=== PATIENT | female | born 1970 | race Caucasian/White ===

== ENCOUNTER 2017-05-03 11:27 | Outpatient (CLI) | payer OTHER ==
[~2017-05-03] VITALS: Ht 157.5 cm; Wt 49.1 kg
[2017-05-03 11:42] VITALS: BP 126/88; PULSE 80; RESP 18; Ht 157.5 cm; Wt 49.1 kg
[2017-05-03] MEDS ORDERED: ALBU90AE INHALATION (11:57)
[2017-05-03] MEDS ORDERED: FAMO20TA18 PO (11:57)
[2017-05-03] MEDS ORDERED: DIPH25CA6 PO (11:57)
[2017-05-03] MEDS ORDERED: AMLO-147 PO (11:57)
[2017-05-03] MEDS ORDERED: CETI5SOL PO (11:57)
[2017-05-03] MEDS ORDERED: EPIN0.1516 IM (11:57)
--- NOTE | 2017-05-03 12:28 | PN ---
Date/Time of Note Date/Time of Note DATE: 05/03/17 TIME: 12:22 Outpatient Progress Note Chief Complaint Polydipsia/hyponatremia/hypertension/fibromyalgia/migraine headaches/chronic headache HPI Polydipsia/patient has been drinking 12-15 bottles a day, until recently, patient was recently hospitalized with hyponatremia, patient now drinking 6 or 7 bottles a day patient complains of dryness of mouth,, Hyponatremia/patient was recently admitted with hyponatremia, patient has complained of severe fatigue weakness muscle ache, tiredness, Hypertension/patient has headache or dizziness no hematuria,, Fibromyalgia/patient has generalized weakness and tiredness, Migraine headaches/patient has history of migraine headache, and chronic headache, patient on medication, Asthma/patient has history of asthma, on inhaler, Review of Systems Const: No Fever, no chills, no Wt. loss, mild to moderate fatigue, normal appetite, no diaphoresis. Eyes: No pain, no discharge, no redness, no visual change, no foreign body. ENT: No pain, no bleeding, no congestion, no sore throat, no dysphagia, no discharge or rhinitis. Lymph: No adenopathy, no tender nodes, no lymphedema. Resp: No SOB, slight cough, no sputum, no wheezing, no chest pain. CV: No chest pain, no palpitaions, no JONES, no PND, no edema. GI: Normal appetite, no pain, no nausea, no vomiting, no diarrhea, no blood, no constipation. : No frequency, no urgency, no dysuria, no hematuria, no flank pain, no discharge, no bleeding. Musc: no back pain, no neck pain, no knee pain, no restricted ROM. Skin: No rash, no skin lesions, no erythema, no laceration, no bruising, no pruritus. Neuro: No KEENE, no dizziness, no syncope, no seizure, no focal-weakness. Endo: No polyuria, no polydypsia, no dry-skin, no temp-intolerance. Psych: No hallucinations, no depression, no anxiety, no suicidal ideation. Ext: No edema, no pain, no ulcer, no weakness. Physical Exam Vital Signs Date Time Temp Pulse Resp B/P Pulse Ox O2 Delivery O2 Flow Rate FiO2 05/03/17 11:42 98.1 80 18 126/88 99 Room Air General Appearance: A 46 year-old female who appears well-developed, well- nourished, in no acute distress. HEENT: Head normocephalic, atraumatic. Pupils equal, round, reactive to light and accommodate. Sclerae are no jaundice. Nasal turbinates pink without erythema or nasal discharge. Mucous membranes pink and moist without lesions. Oropharynx clear without any exudate or discharge. NECK: Supple. Trachea midline, No thyromegaly, No cervical lymphadenopathy, No mass, No carotid bruits, No JVD, Carotid pulses 2+ bilaterally. PULMONARY: Clear to auscultaion bilaterally, No retractions, Chest expansion symmetric bilaterally, no rales, no ronchi, no dulness on percussion. CARDIAC: Normal SI and S2, Regular rate and rythm, no murmur, gallop, or rub. GASTROINTESTINAL: Abdomen is soft, non-tender, Non Rigid, No distention, Positive bowel sounds x4 quadrants, Liver normal. SKIN: Warm, dry, no rash, no bruise, no echmosis. EXTREMITIES: Bilateral lower extremities normal, no edema, no phlabitus, pulse palpable, no contracture. MUSCULOSKELETAL: Spine Normal, Non-tender, Normal range of motion, No swelling, no deformity, no clubbing, or cyanosis, the patient has no edema to bilateral lower extremities, dorsalis pedis pulses palpable bilaterally. NEUROLOGIC: The patient is awake, alert, oriented, responding to yes/no questions appropriately, moving all extremities, cranial nerve intact, normal strenght, normal power, normal coordination, normal gait. Allergies Coded Allergies: latex (Verified Allergy, Unknown, 05/03/17) pollen extracts (Verified Allergy, Unknown, 05/03/17) PMH Hypertension/hyponatremia/hypokalemia/UTI/migraine headaches/history of multiple allergies/recurrent right ear swelling/migraine headache Social Hx No smoking no drinking Family Hx Noncontributory Assessment/Plan Impression Polydipsia/hyponatremia/hypertension/fibromyalgia/migraine headaches/asthma Plan Patient education done about drinking too much water, patient need to reduce the fluid intake, patient is taking medication for allergy Zyrtec and also inhaler for asthma which will cause dryness of mouth, patient advised to rinse the mouth after medication, Patient also advised to sip of water and soap drink the water, and reduce the fluid intake significantly, Patient has very shallow breathing, patient advised to increase breathing exercise, and resume swimming, at present patient does not have any right ear infection, advised to monitor, We will do BMP for checking the potassium and sodium level, Patient encouraged to follow with the primary care physician, Medications Home Meds Reported Medications Epinephrine (EPINEPHRINE) 0.15 Mg/0.15 Ml Pen.injctr, 0.15 MG IM q15min, SYR 05/03/17 Cetirizine Hcl* (Cetirizine Hcl*) 5 Mg/5 Ml Solution, 10 MG PO DAILY, #300 ML 05/03/17 Diphenhydramine Hcl (Benadryl) 25 Mg Cap, 25 MG PO Q12 for ITCHING, CAP 05/03/17 Albuterol Sulfate (Proair Respiclick) 90 Mcg Aer.pow.ba, 1 PUFF INHALATION Q4 Y for SHORTNESS OF BREATH, #1 BOTTLE 05/03/17 Famotidine* (Famotidine*) 20 Mg Tablet, 20 MG PO BID, #60 TAB 05/03/17 Amlodipine Besylate* (Amlodipine Besylate*) 10 Mg Tablet, 10 MG PO DAILY, #30 TAB 05/03/17 MILI LINDSAY MD May 03, 2017 12:28
== END 2017-05-03 16:42 | disposition home or self-care (01) ==
LOC: DCC 11:27
PROVIDERS: ATTEND Internal Medicine
DX: R63.1 Polydipsia (principal); I10 Essential (primary) hypertension; M79.7 Fibromyalgia; J45.909 Unspecified asthma, uncomplicated; E87.1 Hypo-osmolality and hyponatremia; G43.909 Migraine, unspecified, not intractable, without status migrainosus

== ENCOUNTER → 2017-05-19 | Outpatient (CLI) | payer OTHER ==
[~2017-05-19] VITALS: Ht 157.5 cm; Wt 51.4 kg
[~2017-05-19] MED LIST: ALBU90AE INHALATION; AMLO-147 PO; CETI5SOL PO; DIPH25CA6 PO; EPIN0.1516 IM; FAMO20TA18 PO
[2017-05-19 11:51] VITALS: BP 125/88; PULSE 88; RESP 16; Ht 157.5 cm; Wt 51.4 kg
--- NOTE | 2017-05-19 12:53 | PN ---
Date/Time of Note Date/Time of Note DATE: 05/19/17 TIME: 12:48 Outpatient Progress Note Chief Complaint Hypertension/fibromyalgia/migraine headaches/epigastric discomfort HPI Hypertension/patient is a chronic headache, and occasional dizziness, no local focal weakness, no chest pain, patient blood pressure under control, patient used to take multiple different medication, right now patient is not taking any medication, Fibromyalgia/patient has generalized weakness and tiredness, Migraine headaches/patient has history of migraine headache, patient's a migraine headache off and on and patient has tried almost every medication, Epigastric discomfort/patient has epigastric discomfort, no heartburn, patient on Zantac, Review of Systems Const: No Fever, no chills, no Wt. loss, no Fatigue, normal appetite, no diaphoresis. Eyes: No pain, no discharge, no redness, no visual change, no foreign body. ENT: No pain, no bleeding, no congestion, no sore throat, no dysphagia, no discharge or rhinitis. Lymph: No adenopathy, no tender nodes, no lymphedema. Resp: No SOB, no cough, no sputum, no wheezing, no chest pain. CV: No chest pain, no palpitaions, no JONES, no PND, no edema. GI: Normal appetite, mild epigastric pain, and patient also has mild left lower quadrant discomfort, no nausea, no vomiting, no diarrhea, no blood, no constipation. : No frequency, no urgency, no dysuria, no hematuria, no flank pain, no discharge, no bleeding. Musc: , no back pain, no neck pain, no knee pain, no restricted ROM. Skin: No rash, no skin lesions, no erythema, no laceration, no bruising, no pruritus. Neuro: Off and on KEENE, and dizziness, no syncope, no seizure, no focal-weakness. Endo: No polyuria, no polydypsia, no dry-skin, no temp-intolerance. Psych: No hallucinations, no depression, no anxiety, no suicidal ideation. Ext: No edema, no pain, no ulcer, no weakness. Physical Exam Vital Signs Date Time Temp Pulse Resp B/P Pulse Ox O2 Delivery O2 Flow Rate FiO2 05/19/17 11:51 98.5 88 16 125/88 100 Room Air General Appearance: A 47 year-old female who appears well-developed, well- nourished, in no acute distress. HEENT: Head normocephalic, atraumatic. Pupils equal, round, reactive to light and accommodate. Sclerae are no jaundice. Nasal turbinates pink without erythema or nasal discharge. Mucous membranes pink and moist without lesions. Oropharynx clear without any exudate or discharge. NECK: Supple. Trachea midline, No thyromegaly, No cervical lymphadenopathy, No mass, No carotid bruits, No JVD, Carotid pulses 2+ bilaterally. PULMONARY: Clear to auscultaion bilaterally, No retractions, Chest expansion symmetric bilaterally, no rales, no ronchi, no dulness on percussion. CARDIAC: Normal SI and S2, Regular rate and rythm, no murmur, gallop, or rub. GASTROINTESTINAL: Abdomen is soft, mild left lower quadrant discomfort, Non Rigid, No distention, Positive bowel sounds x4 quadrants, Liver normal. SKIN: Warm, dry, no rash, no bruise, no echmosis. EXTREMITIES: Bilateral lower extremities normal, no edema, no phlabitus, pulse palpable, no contracture. MUSCULOSKELETAL: Spine Normal, Non-tender, Normal range of motion, No swelling, no deformity, no clubbing, or cyanosis, the patient has no edema to bilateral lower extremities, dorsalis pedis pulses palpable bilaterally. NEUROLOGIC: The patient is awake, alert, oriented, responding to yes/no questions appropriately, moving all extremities, cranial nerve intact, normal strenght, normal power, normal coordination, normal gait. Allergies Coded Allergies: latex (Verified Allergy, Unknown, 05/03/17) pollen extracts (Verified Allergy, Unknown, 05/03/17) PMH No change Social Hx No change Family Hx No change Assessment/Plan Impression Hypertension/fibromyalgia/migraine headaches/epigastric discomfort/left lower quadrant discomfort Plan Patient education done about multiple medical problems she has it, patient advised to cut down medication as much as possible, Patient also educated about allergy, and patient has dryness of mouth and patient drinks a lot of water because of dryness of mouth, patient advised to avoid Zyrtec or similar medication if possible, Patient has off-and-on palpitation, and also has resting sinus tachycardia, patient was taking metoprolol before, will resume 12.5 mg daily, Will monitor epigastric discomfort and left lower quadrant discomfort if patient has a fever then will give medication and evaluate, at present will monitor closely, discussed with the patient, Patient given all information about her disease and possible complications, patient also advised to follow with GI for colonoscopy every few years but as patient has a history of colon polyp, Medications Home Meds Reported Medications Epinephrine (EPINEPHRINE) 0.15 Mg/0.15 Ml Pen.injctr, 0.15 MG IM q15min, SYR 05/03/17 Cetirizine Hcl* (Cetirizine Hcl*) 5 Mg/5 Ml Solution, 10 MG PO DAILY, #300 ML 05/03/17 Diphenhydramine Hcl (Benadryl) 25 Mg Cap, 25 MG PO Q12 for ITCHING, CAP 05/03/17 Albuterol Sulfate (Proair Respiclick) 90 Mcg Aer.pow.ba, 1 PUFF INHALATION Q4 Y for SHORTNESS OF BREATH, #1 BOTTLE 05/03/17 Famotidine* (Famotidine*) 20 Mg Tablet, 20 MG PO BID, #60 TAB 05/03/17 Amlodipine Besylate* (Amlodipine Besylate*) 10 Mg Tablet, 10 MG PO DAILY, #30 TAB 05/03/17 MILI LINDSAY MD May 19, 2017 12:53
== END | disposition home or self-care (01) ==
LOC: DCC 11:43
PROVIDERS: ATTEND Internal Medicine
DX: I10 Essential (primary) hypertension (principal); M79.7 Fibromyalgia; G43.909 Migraine, unspecified, not intractable, without status migrainosus; R10.13 Epigastric pain; R10.32 Left lower quadrant pain